=== PATIENT | male | born 1980 | race Caucasian/White ===

== ENCOUNTER 2024-02-28 11:17 | Emergency (ER) | payer BC, SELFPAY ==
[2024-02-28 11:17] VITALS: BMI 28.5
[2024-02-28 11:29] VITALS: BP 127/79
[2024-02-28 11:52] LABS: % Basophils 0.8 % (0-2); % Eosinophils 9.6 % (0-6); % Lymphocytes 44.1 % (20.5-51.1); % Monocytes 9.4 % (1.7-9.3); % Neutrophils 36.1 % (42.2-75.2); Absolute Eosinophils 0.4 10^3/uL (0-0.7); Absolute Lymphocytes 1.6 10^3/uL (1.2-3.4); Absolute Monocytes 0.3 10^3/uL (0.1-0.6); Absolute Neutrophils 1.3 10^3/uL (1.4-6.5); Hematocrit 40.6 % (39.0-52.0); Hemoglobin 14.1 g/dL (13.0-18.0); Mean Corp Hgb Conc. 34.7 g/dL (33.0-37.0); Mean Corpuscular Hgb 30.3 pg (27.0-31.0); Mean Corpuscular Volume 87.1 fL (80.0-94.0); Mean Platelet Volume 9.9 fL (7.4-10.4); Nucleated Red Blood Cells % 0 % (-); Platelet Count 269 10^3/uL (130-400); Red Blood Cell Count 4.66 10^6/uL (4.70-6.10); Red Cell Dist. Width 12.4 % (11.5-14.5); White Blood Cell Count 3.6 10^3/uL (4.8-10.8)
[2024-02-28 12:05] LABS: ALT (SGPT) 22 U/L (0-50); AST (SGOT) 43 U/L (17-59); Albumin 4.8 g/dl (3.5-5.0); Alkaline Phosphatase 69 U/L (38-126); Blood Urea Nitrogen 13 mg/dl (9-20); Calcium 10.1 mg/dl (8.4-10.2); Carbon Dioxide 31 mmol/L (22-30); Chloride 100 mmol/L (98-107); Glucose 98 mg/dl (70-99); Potassium 3.9 mmol/L (3.5-5.1); Sodium 138 mmol/L (135-145); Total Bilirubin 1.4 mg/dl (0.2-1.3); eGFR > 60.00
[2024-02-28 12:16] LABS: Troponin I < 0.012 ng/ml
[2024-02-28 14:04] VITALS: BP 129/84
--- NOTE | 2024-02-28 14:07 | ED.GENMED ---
History of Present Illness
General
Chief Complaint: Chest Pain
Source: patient
Time Seen by Provider: 02/28/24 13:56
Travel History
Have you had any contact with someone who has COVID-19?: No
Do you have any symptoms of coronavirus? Fever > 100 degrees, chills, cough, shortness of breath, sore throat, loss of taste or smell, muscle aches, or headache?: No
History of Present Illness
History of Present Illness:
44-year-old male with past medical history of hyperlipidemia and GERD presenting to the emergency department for evaluation of some right-sided chest discomfort that has been ongoing intermittently for about 1 month, patient initially thought
symptoms were likely related to his reflux but due to the persisting nature of his symptoms as well as no relief with Nexium decided [facility]. While there patient reportedly had an abnormal EKG and was recommended to come
to the ER for further evaluation. Patient also notes that he feels the pain with movement and feels as if he is under strain on the right side of his body. He denies any cough, fevers or infectious symptoms, pleurisy, hemoptysis, lower extremity
edema or any other concerns. Patient does note that he did an intense workout this morning but did not have any chest pain during the workout.
Past History
Past History
ED Past Medical History: GERD and Hypercholesterolemia
ED Past Surgical History: None
Social History
Tobacco: Non-smoker
Alcohol: None
Drug: None
Personal:
Living: with family
Employment: Employed
Phy Exam
Physical Exam
Physical Exam:
GENERAL: Alert , in no apparent distress
EYE: conjunctiva clear
NECK: Supple
ENT: o/p clr, mmm.
CARDIAC: Regular rate and rhythm, no murmur
LUNGS: Clear breath sounds bilaterally, no acute respiratory distress, no wheezes/rales/rhonchi
NEUROLOGICAL: Alert and oriented
SKIN: Warm and dry, skin intact.
MUSCULOSKELETAL: well perfused. No edema
PSYCH: Normal and appropriate interaction.
Scores
Heart Failure Risk
Heart Failure Risk Score: Not Applicable
Heart Score for Chest Pain Patients
STEMI patient?: No
History: Slightly or Non-Suspicious
ECG: Normal
Age: </= 45 years
Risk Factors: No Risk Factors
Troponin: </= Normal Limit
Heart Score for Chest Pain Patients: 0
Heart Score Risk: 2.5% MACE over next 6 weeks
Withdrawal Assessment of Alcohol
Withdrawal Assessment Completed?: Not applicable
Course
Orders/Labs/Results
Orders:
Orders
02/28/24 11:26
ECG [Electrocardiogram (*1)] Urgent
Reason for Study: Chest Pain
EKG- Treatment ONCE
02/28/24 11:36
Complete Blood Count/With Diff Urgent
Comprehensive Metabolic Panel Urgent
Troponin I Urgent
02/28/24 14:06
CR Chest - 2 Views Urgent
Comment:
Reason For Exam: chest pain
02/28/24 14:12
UA Reflex to Culture [Urinalysis Reflex To Culture] Urgent
Date Specimen was Collected: 02/28/24
Time Specimen was Collected: 14:10
Abnormal Lab Results
02/28/24
11:36
WBC 3.6 L 10^3/uL
(4.8-10.8)
RBC 4.66 L 10^6/uL
(4.70-6.10)
Absolute Neuts (auto) 1.3 L 10^3/uL
(1.4-6.5)
Neutrophils % 36.1 L %
(42.2-75.2)
Monocytes % 9.4 H %
(1.7-9.3)
Eosinophils % 9.6 H %
(0-6)
Carbon Dioxide 31 H mmol/L
(22-30)
Total Bilirubin 1.4 H mg/dl
(0.2-1.3)
02/28/24 11:36
02/28/24 11:36
Vital Signs
Initial and Last Documented VS:
Initial Vital Signs
Temp Pulse Resp BP Pulse Ox
98.8 F 71 20 127/79 99
02/28/24 11:29 02/28/24 11:29 02/28/24 11:29 02/28/24 11:29 02/28/24 11:29
Last Documented Vital Signs
Temp Pulse Resp BP Pulse Ox
98.8 F 62 20 129/84 99
02/28/24 11:29 02/28/24 14:04 02/28/24 11:29 02/28/24 14:04 02/28/24 14:04
MDM/Problems Addressed
Differential Diagnosis Includes:
Musculoskeletal chest wall pain, GERD/gastritis, peptic ulcer disease, symptoms do not seem to be suggestive of ACS, PE also considered however patient has no symptoms suggestive of this either.
MDM/Problems Addressed:
44-year-old male presenting the emergency department for evaluation of chest discomfort with reported abnormal EKG at [facility]. Patient's EKG was done in triage and is nonischemic without any signs of abnormalities. Overall I am
not very suspicious for any emergent cardiac pathologies given patient exercises regularly and is asymptomatic during these times. Labs have been initiated from triage patient has a normal troponin. Labs are mostly unremarkable outside of a
slight leukopenia of unspecified significance. Will arrange for chest pain hotline follow-up. Encourage close follow-up with primary care provider as well. Anticipate discharge home following chest x-ray and urinalysis.
*Radiology
Radiology exam reviewed: radiology read reviewed
*Pulse Oximetry
Patient hypoxic: no
*EKG
Interpreted by ED Provider?: Yes
Interpretation: normal
Comparison EKG: no comparison EKG present
Heart Rate: 65
Rate: normal
Rhythm: sinus
[place]: normal axis
Ischemia: no ischemia
*Critical Care Note
Total Time (30-74mins, 75-104mins- exclusive of procedures): Not Applicable
Patient Management
Escalation/DeEscalation of care consider admission/obs:
CXR and UA unremarkable. Stable for d/c home and outpatient management
ED Attending Note
-
Portions of this chart may have been created with voice recognition software.� Occasional wrong word or��sound alike� substitutions may have occurred due to the inherent limitations of voice recognition software.
Discharge Plan
Departure
Patient Disposition: Home (Routine Discharge)
Date of Disposition: 02/28/24
Time of Disposition: 15:00
Patient with high blood pressure during this ER visit?: No
Discharge Problem:
Chest wall discomfort
Instructions: Chest Pain CBC Follow Up
Prescriptions:
No Action
No Current Medications
0
Referrals:
Genesis Amin CRNP [Family Provider] -
Interventions
Interventions:
*Risk Screen - Suicide Last Done: 02/28/24 14:03
*General Assessment Last Done: 02/28/24 14:03
*Neglect/Abuse Screening Last Done: 02/28/24 14:03
*ED COVID-19 Vaccine History Last Done: 02/28/24 11:29
*Nursing Disposition Last Done: 02/28/24 15:07
ED- Cardiac Assessment Last Done: 02/28/24 14:03
Discharge Date and Time
Discharge Date/Time: 02/28/24 15:08
Print Language: [id number]
[2024-02-28 14:18] LABS: Urine Albumin Negative (Neg - Trace); Urine Bilirubin Negative (Negative); Urine Character Clear (Clear); Urine Color Yellow; Urine Glucose Negative (Negative); Urine Ketone Negative (Negative); Urine Leukocyte Negative (Negative); Urine Nitrite Negative (Negative); Urine Occult Blood Negative (Negative); Urine Urobilinogen Negative (Neg - 1+); Urine pH 6.5 (5.0-9.0)
== END 2024-02-28 15:08 | disposition home or self-care (01) ==
LOC: EMR 11:17
PROVIDERS: Emergency Medicine; Physician Assistant Medical; EMERGENCY PHYSICIAN Emergency Medicine; FAMILY PHYSICIAN Nurse Practitioner Adult Health
DX: R07.89 Other chest pain (principal); K21.9 Gastro-esophageal reflux disease without esophagitis; E78.00 Pure hypercholesterolemia, unspecified
CPT/HCPCS: 99285; 71046; 80053; 81003; 84484; 85025; 93005